=== PATIENT | male | born 1955 | race Caucasian/White ===

== ENCOUNTER 2025-04-03 06:00 | Day surgery (SDC) | payer MEDICARE ==
[~2025-04-03 06:00] MED LIST: Sodium Chloride 0.9% 10 ML Syringe FLUSH PRN; Sodium Chloride 0.9% 10 ML Syringe FLUSH SCH
[2025-04-03] MEDS: Lactated Ringers 1,000 ML IV SCH (06:15)
[2025-04-03] MEDS ORDERED: Propofol 200 MG/20 ML SDV ONE (06:48)
[2025-04-03] MEDS: Triamcinolone Acetonide 40 MG/ML 1 ML SDV ONE (07:24)
== END 2025-04-03 08:00 | disposition home or self-care (01) ==
LOC: JD.SDS 06:00
PROVIDERS: ATTEND Orthopaedic Surgery
DX: G56.02 Carpal tunnel syndrome, left upper limb (principal); I10 Essential (primary) hypertension; M65.331 Trigger finger, right middle finger; E78.00 Pure hypercholesterolemia, unspecified; Z79.82 Long term (current) use of aspirin; Z79.899 Other long term (current) drug therapy; Z87.891 Personal history of nicotine dependence
CPT/HCPCS: 64721; J0665; J0690; J2003; J2704; J3301; J7120; 01810